=== PATIENT | female | born 1955 | race Caucasian/White ===

== ENCOUNTER 2019-12-18 20:17 | Emergency (ER) | payer OTHER ==
[2019-12-18] MEDS ORDERED: PROPARACAINE 0.5% OPHTH DROPS 15 ML BTL LEFT EYE STA (20:42)
[2019-12-18 21:30] VITALS: BP 117/76; PULSE 64; RESP 16; TEMP 98.2
--- NOTE | 2019-12-18 21:47 | ED ---
ENT HPI - General Chief complaint: ENT Stated complaint: left eye pain Time Seen by Provider: 12/18/19 20:30 Source: patient Mode of arrival: ambulatory Limitations: no limitations - History of Present Illness Initial comments: Patient is a 64-year-old female with no past history, on no medications presents emergency room with reported visual disturbance. She states that 2 days ago she was having a bowel movement where she was straining. Reports that she began having a floater in her left I which would be intermittent throughout the day. Tonight the patient reports that she had sudden onset of what she describes as a "lightning bolt" in her left eye around 7:30 pm. Visual disturbance is precipitated when the patient looks to the left when she is sitting upright. Denies having these symptoms when the patient lays down. Visual disturbance is not constant. She admits to been sensation that she is straining the eye however denies blurred vision or double vision. She denies ocular pain. No foreign body sensation. Patient does wear bifocals. No previous history of ocular surgery or disease. Patient is not a diabetic. No history of hypertension. She denies any associated headaches, temporal pain, fevers or chills. She denies any nausea or vomiting. No unilateral numbness or weakness. No other alleviating, precipitating or modifying factors - Related Data Allergies Allergy/AdvReac Type Severity Reaction Status Date / Time No Known Allergies Allergy Verified 12/18/19 20:30 Review of Systems ROS Statement: Those systems with pertinent positive or pertinent negative responses have been documented in the HPI. ROS Other: All systems not noted in ROS Statement are negative. Past Medical History Past Medical History: No Reported History History of Any Multi-Drug Resistant Organisms: None Reported Additional Past Surgical History / Comment(s): knee surgery Past Psychological History: No Psychological Hx Reported Smoking Status: Never smoker Past Alcohol Use History: Rare Past Drug Use History: None Reported General Exam Limitations: no limitations General appearance: alert, in no apparent distress Eye exam: Present: normal appearance, PERRL, EOMI. Absent: scleral icterus, conjunctival injection, periorbital swelling ENT exam: Present: normal exam, mucous membranes moist Neck exam: Present: normal inspection. Absent: tenderness, meningismus, lymphadenopathy Course Vital Signs 12/18/19 12/18/19 20:27 21:26 Temperature 98.1 F 98.2 F Pulse Rate 72 64 Respiratory 20 16 Rate Blood Pressure 155/93 117/76 O2 Sat by Pulse 98 99 Oximetry Medical Decision Making - Medical Decision Making Upon arrival the patient was placed into room 11. A thorough history and physical exam was performed. Visual acuity is obtained. Patient does have 20/50 vision in the left eye, 20/40 vision in the right eye and 20/40 vision in both eyes. Patient does have a reactive pupil. No signs of ocular entrapment. Patient's intraocular pressures measured and noted to be 18, 18 and 20. Limited funduscopic exam is performed and appears negative. I did perform a bedside ocular ultrasound which does not demonstrate any signs of retinal attachment. I discussed the results with the patient. I discussed the results with Dr. Boone at 2114. He does recommend follow-up on Friday morning in office for evaluation. Return to the emergency department should she have any worsening visual deficit. I did discuss this with the patient and her daughter at bedside. Daughter is upset and unhappy that the patient will not be dilated in the emergency department at this time by an antique furniture repairer. Because of the daughter's concerns I did call Dr. Boone back at 2129. He does discuss the patient's care with his father who is offering to open up the office tomorrow morning at 10 AM for evaluation. He states that the patient does not have signs consistent with a retinal detachment however this may involve a retinal tear versus vitreous hemorrhage. I discussed this care with the patient and her family. Patient does agree with the treatment plan. She is instructed to return to the emergency room and should she have a "snowglobe" visual disturbance the left eye or experience persistent visual disturbance even when looking straight. The patient understood this. The patient's information was given to Dr. Boone. The patient was given directions to the office and was told that she is expected to be there at 10 AM tomorrow. She was discharged with stable condition Disposition Clinical Impression: Vitreous floaters of left eye Disposition: HOME SELF-CARE Condition: Stable Instructions (If sedation given, give patient instructions): Visual Floaters (ED) Additional Instructions: You have an appointment scheduled Dr. Boone at 10 AM tomorrow. Please arrive at his office at this time. Return to the emergency room and should you have persistent for vision or "snowglobe" vision in the left eye. Is patient prescribed a controlled substance at d/c from ED?: No Referrals: Ben Marroquin MD [Primary Care Provider] - 1-2 days Dandre Boone MD [STAFF PHYSICIAN] - 1-2 days Chano Boone MD [REFERRING] - 1-2 days Time of Disposition: 21:46
== END 2019-12-18 21:55 | disposition home or self-care (01) ==
LOC: EC 20:17
DX: H43.392 Other vitreous opacities, left eye (principal)
CPT/HCPCS: 99283

== ENCOUNTER 2020-04-26 09:38 | Emergency (ER) | payer OTHER ==
[2020-04-26] MEDS ORDERED: MECLIZINE 12.5 MG TAB PO STA (10:06)
[2020-04-26] MEDS ORDERED: diphenhydrAMINE 50 MG/ML 1 ML VIAL IVP STA (10:06)
[2020-04-26] MEDS ORDERED: ONDANSETRON 4 MG/2 ML VIAL IVP STA (10:06)
[2020-04-26] MEDS ORDERED: SODIUM CHLORIDE 0.9% 500 ML 500 ML IV ONE (10:08)
[2020-04-26 10:35] LABS: Basophils % (A) 1 %; Eosinophils # (A) 0.1 k/uL (0-0.7); Eosinophils % (A) 3 %; HCT 42.7 % (34.0-46.0); HGB 14.4 gm/dL (11.4-16.0); Lymphocytes # (A) 1.6 k/uL (1.0-4.8); Lymphocytes % (A) 32 %; MCH 28.7 pg (25.0-35.0); MCHC 33.8 g/dL (31.0-37.0); MCV 84.7 fL (80.0-100.0); Mean Platelet Volume 6.9; Monocytes # (A) 0.3 k/uL (0-1.0); Monocytes % (A) 6 %; Neutrophils # (A) 2.9 k/uL (1.3-7.7); Neutrophils % (A) 58 %; Platelet Count 271 k/uL (150-450); RBC 5.04 m/uL (3.80-5.40); RDW 13.1 % (11.5-15.5)
[2020-04-26 10:45] LABS: INR 0.9 (<1.2); Partial Thromboplastin Time 24.1 sec (22.0-30.0); Prothrombin Time 9.8 sec (9.0-12.0)
[2020-04-26 10:47] LABS: Albumin 4.6 g/dL (3.5-5.0); Calcium 9.4 mg/dL (8.4-10.2); Potassium 3.8 mmol/L (3.5-5.1); Total Bilirubin 0.5 mg/dL (0.2-1.3); Total Protein 7.7 g/dL (6.3-8.2)
--- NOTE | 2020-04-26 11:11 | XR ---
EXAMINATION TYPE: XR chest 2V DATE OF EXAM: 04/26/2020 COMPARISON: NONE HISTORY: Dizziness TECHNIQUE: Frontal and lateral views of the chest are obtained. FINDINGS: There is no focal air space opacity, pleural effusion, or pneumothorax seen. The cardiac silhouette size is within normal limits. The osseous structures are intact. IMPRESSION: No acute cardiopulmonary process.
--- NOTE | 2020-04-26 11:27 | CT ---
EXAMINATION TYPE: CT brain wo con DATE OF EXAM: 04/26/2020 COMPARISON: None HISTORY: headache, dizziness CT DLP: 1089 mGycm Automated exposure control for dose reduction was used. FINDINGS: Ventricular system is midline. Ventricular size is compatible with the patient's age. No midline shif t or mass effect. No acute hemorrhage. Changes of chronic right maxillary sinusitis. Calvarium intact . Cerebellar tonsils low-lying in position at the level of foramen magnum. IMPRESSION: NO ACUTE HEMORRHAGE OR MASS EFFECT. LOW-LYING CEREBELLAR TONSILS CORRELATE FOR CHIARI MALFORMATION.
--- NOTE | 2020-04-26 11:41 | CT ---
EXAMINATION TYPE: CT angio head neck DATE OF EXAM: 04/26/2020 HISTORY: headache, dizziness COMPARISON: None CT DLP: 272 mGycm. Automated Exposure Control for Dose Reduction was Utilized. TECHNIQUE: CTA scan of the neck is performed with IV Contrast, patient injected with 65 mL of Isovue 370, axial images are obtained, coronal and sagittal reformatted images are reviewed. Three-D recons tructed images are created on an independent workstation and reviewed. FINDINGS: Left vertebral artery dominant. Anterior middle cerebral arteries enhance normally. Basilar artery and posterior cerebral arteries enhance normally. No sizable aneurysm or vascular malformatio n. The carotid bifurcations appear to be widely patent bilaterally with no significant stenosis. There are bilateral subpleural nodules the largest in the right upper lobe measuring 6 mm. Hypertroph ic changes of the spine. Changes of chronic sinusitis noted. IMPRESSION: 1. No evidence of significant hemodynamic stenosis involving the carotid bifurcations. 2. No sizable aneurysm or vascular malformation. 3. Correlate for right maxillary sinusitis.
[2020-04-26 11:59] LABS: Appearance,Urine Clear (Clear); Bilirubin,Urine Negative (Negative); Blood,Urine Negative (Negative); Color,Urine Colorless; Glucose,Urine (UA) Negative (Negative); Ketones,Urine Negative (Negative); Leukocyte Esterase,Urine Negative (Negative); Nitrite,Urine Negative (Negative); Protein,Urine Negative (Negative); Specific Gravity,Urine 1.014 (1.001-1.035); Urobilinogen,Urine <2.0 mg/dL (<2.0)
--- NOTE | 2020-04-26 12:03 | ED ---
Dizziness HPI - General Chief Complaint: Dizziness Stated Complaint: Dizziness, Nausea Time Seen by Provider: 04/26/20 09:52 Source: patient Mode of arrival: ambulatory Limitations: no limitations - History of Present Illness Initial Comments: 64-year-old female with history of chronic tinnitus, vertigo presenting to the emergency room today for chief complaint of dizziness and nausea since this AM. Patient states that she got up to the restroomshe said she felt very dizzy and off-balance she states this occurred when she took a few steps. Patient states she struggled with vertigo in the past. She states she has constant ringing in her ears. She states is not new. Patient states it is just increased from baseline. She states that she also got a headache this morning she states headaches are not typically unusual for her. She states is about a 3 out of 10 and she denies this being the worse headache of her life sudden onset. Patient states is in the frontal aspect of her head. Patient denies any neck pain and stiffness fevers she denies any vomiting vision loss or diplopia she denies any new vision changes. Patient denies weakness, sensation deficits, pt denies feeling off balance. Patietn denies fall, trauma, anticoagulation, denies hx of aneursym. she states she has seen both ENT and neurology in the past. Pt denies hcest pain, dypsnea, leg swelling, staets this is not lightheaded sensation but rather sensation of room spinning.. Patient denies additional complaints. UPon arrival patient appeears well nontoxic in no acute distress. - Related Data Previous Rx's Medication Instructions Recorded Meclizine [Antivert] 25 mg PO BID 7 Days #14 tab 04/26/20 Allergies Allergy/AdvReac Type Severity Reaction Status Date / Time dipyridamole Allergy Dyspnea Verified 04/26/20 09:59 [From Persantine] Review of Systems ROS Statement: Those systems with pertinent positive or pertinent negative responses have been documented in the HPI. ROS Other: All systems not noted in ROS Statement are negative. Past Medical History Past Medical History: No Reported History History of Any Multi-Drug Resistant Organisms: None Reported Additional Past Surgical History / Comment(s): knee surgery Past Psychological History: No Psychological Hx Reported Smoking Status: Never smoker Past Alcohol Use History: Rare Past Drug Use History: None Reported General Exam - General Exam Comments Initial Comments: General: The patient is awake and alert, in no distress, and does not appear acutely ill. Eye: +3 mm pupils are equal, round and reactive to light, extra-ocular movements are intact. No nystagmus. There is normal conjunctiva bilaterally. No signs of icterus. Ears, nose, mouth and throat: There are moist mucous membranes and no oral lesions. HINTS (-) Neck: The neck is supple, there is no tenderness or JVD. Cardiovascular: There is a regular rate and rhythm. No murmur, rub or gallop is appreciated. Respiratory: Lungs are clear to auscultation, respirations are non-labored, b reath sounds are equal. No wheezes, stridor, rales, or rhonchi. Gastrointestinal: Soft, non-distended, non-tender abdomen without masses or organomegaly noted. There is no rebound or guarding present. Musculoskeletal: Normal ROM, no tenderness. Strength 5/5. Sensation intact. Pulses equal bilaterally 2+. Neurological: A&O x 3. CN II-XII intact, memory intact to immediately, intermediate and exterminator termite recall. Able to follow simple verbal. Able to name a common object (pen). High quality, labial (pa) and lingual (la) speech. Low quality posterior pharynx/larynx (ga) voice sounds. Able to express general knowledge (days in a week). No hemineglect or inattention noted. Finger agnosia (-) and spatially oriented (identified L index finger touched R shoulder with L index finger).Light touch sensation present over the face, chest, abdomen, back, UE bilaterally, and LE bilaterally. Able to localize point during point localization b/l and extinction. No visible bulk atrophy, hypertrophy, fasciculations, or myoclonus of the UE or LE b/l. Full PROM in UE and LE b/l. Bilateral muscle strength 5/5 for the following muscles: deltoid, biceps, triceps, brachioradialis, wrist extensors/flexor, hip flexor, hip abduct ors/adductors, hamstrings, quadriceps, feet dorsiflexors/plantar flexors. Finger to nose, finger to the examiners finger, and heel to sarmiento coordinated and accurate b/l. Coordinated and even demonstration of hand flip, finger to thumb, and toe tap b/l. Gait is coordinated and even in stride. (-) pronator drift. No nuchal rigidity. (-) Brudzinskis and Kernig signs. Skin: Skin is warm and dry and no rashes or lesions are noted. Psychiatric: Cooperative, appropriate mood & affect, normal judgment. Limitations: no limitations Course Vital Signs 04/26/20 04/26/20 04/26/20 09:44 11:00 13:16 Temperature 98.2 F 97.2 F L Pulse Rate 65 68 61 Respiratory 18 16 18 Rate Blood Pressure 119/75 138/79 105/62 O2 Sat by Pulse 100 100 100 Oximetry - Reevaluation(s) Reevaluation #1: After medications, dizziness when from "above a 10, to a 3/10" 04/26/20 Medical Decision Making - Medical Decision Making 64-year-old female history of vertigo and tinnitus joints emergency department today for chief complaint of increased dizziness. Patient states she also had a headache 3 on a 10 not worse headache onset nohistory.CT/CT angiography negative for acute process a possible low-lying cerebellar tonsils po consistent with possible chiari malformation. Patient has (-)HINTS. EAC/TM WNL. No central findings of vertigo on neurological exam. no focalized findings. CXR (-). EKG no acute findings. LUngs clear. Patient had significant improvement with symptomatic treatment. patient case discussed with Dr. Kennedy who is agreeable to discharge with ENT f/u as this is felt to peripheral vertigo at this time. return parameterand importance of follow-up were discussed the patient was discharged appearing well - Lab Data Result diagrams: 04/26/20 10:14 04/26/20 10:14 Lab Results 04/26/20 04/26/20 04/26/20 Range/Units 10:14 10:14 10:14 WBC 5.0 (3.8-10.6) k/uL RBC 5.04 (3.80-5.40) m/uL Hgb 14.4 (11.4-16.0) gm/dL Hct 42.7 (34.0-46.0) % MCV 84.7 (80.0-100.0) fL MCH 28.7 (25.0-35.0) pg MCHC 33.8 (31.0-37.0) g/dL RDW 13.1 (11.5-15.5) % Plt Count 271 (150-450) k/uL MPV 6.9 Neutrophils % 58 % Lymphocytes % 32 % Monocytes % 6 % Eosinophils % 3 % Basophils % 1 % Neutrophils # 2.9 (1.3-7.7) k/uL Lymphocytes # 1.6 (1.0-4.8) k/uL Monocytes # 0.3 (0-1.0) k/uL Eosinophils # 0.1 (0-0.7) k/uL Basophils # 0.0 (0-0.2) k/uL PT (9.0-12.0) sec INR (<1.2) APTT (22.0-30.0) sec Sodium 139 (137-145) mmol/L Potassium 3.8 (3.5-5.1) mmol/L Chloride 103 (98-107) mmol/L Carbon Dioxide 26 (22-30) mmol/L Anion Gap 10 mmol/L BUN 20 H (7-17) mg/dL Creatinine 0.96 (0.52-1.04) mg/dL Est GFR (CKD-EPI)AfAm 72 (>60 ml/min/1.73 sqM) Est GFR (CKD-EPI)NonAf 63 (>60 ml/min/1.73 sqM) Glucose 96 (74-99) mg/dL Plasma Lactic Acid Pablo 0.9 (0.7-2.0) mmol/L Calcium 9.4 (8.4-10.2) mg/dL Total Bilirubin 0.5 (0.2-1.3) mg/dL AST 51 H (14-36) U/L ALT 46 H (4-34) U/L Alkaline Phosphatase 79 (38-126) U/L Troponin I (0.000-0.034) ng/mL Total Protein 7.7 (6.3-8.2) g/dL Albumin 4.6 (3.5-5.0) g/dL Urine Color Urine Appearance (Clear) Urine pH (5.0-8.0) Ur Specific [place] (1.001-1.035) Urine Protein (Negative) Urine Glucose (UA) (Negative) Urine Ketones (Negative) Urine Blood (Negative) Urine Nitrite (Negative) Urine Bilirubin (Negative) Urine Urobilinogen (<2.0) mg/dL Ur Leukocyte Esterase (Negative) 04/26/20 04/26/20 04/26/20 Range/Units 10:14 10:14 11:35 WBC (3.8-10.6) k/uL RBC (3.80-5.40) m/uL Hgb (11.4-16.0) gm/dL Hct (34.0-46.0) % MCV (80.0-100.0) fL MCH (25.0-35.0) pg MCHC (31.0-37.0) g/dL RDW (11.5-15.5) % Plt Count (150-450) k/uL MPV Neutrophils % % Lymphocytes % % Monocytes % % Eosinophils % % Basophils % % Neutrophils # (1.3-7.7) k/uL Lymphocytes # (1.0-4.8) k/uL Monocytes # (0-1.0) k/uL Eosinophils # (0-0.7) k/uL Basophils # (0-0.2) k/uL PT 9.8 (9.0-12.0) sec INR 0.9 (<1.2) APTT 24.1 (22.0-30.0) sec Sodium (137-145) mmol/L Potassium (3.5-5.1) mmol/L Chloride (98-107) mmol/L Carbon Dioxide (22-30) mmol/L Anion Gap mmol/L BUN (7-17) mg/dL Creatinine (0.52-1.04) mg/dL Est GFR (CKD-EPI)AfAm (>60 ml/min/1.73 sqM) Est GFR (CKD-EPI)NonAf (>60 ml/min/1.73 sqM) Glucose (74-99) mg/dL Plasma Lactic Acid Pablo (0.7-2.0) mmol/L Calcium (8.4-10.2) mg/dL Total Bilirubin (0.2-1.3) mg/dL AST (14-36) U/L ALT (4-34) U/L Alkaline Phosphatase (38-126) U/L Troponin I <0.012 (0.000-0.034) ng/mL Total Protein (6.3-8.2) g/dL Albumin (3.5-5.0) g/dL Urine Color Colorless Urine Appearance Clear (Clear) Urine pH 7.0 (5.0-8.0) Ur Specific [place] 1.014 (1.001-1.035) Urine Protein Negative (Negative) Urine Glucose (UA) Negative (Negative) Urine Ketones Negative (Negative) Urine Blood Negative (Negative) Urine Nitrite Negative (Negative) Urine Bilirubin Negative (Negative) Urine Urobilinogen <2.0 (<2.0) mg/dL Ur Leukocyte Esterase Negative (Negative) Disposition Clinical Impression: Dizziness, Nausea, Headache, History of tinnitus Disposition: HOME SELF-CARE Condition: Good Instructions (If sedation given, give patient instructions): Dizziness (ED) Additional Instructions: Please use medication as discussed. Please follow-up with family doctor in the next 2 days, recommend ENT follow-up in 1-2 days, as well as neurology follow-up for chiari malformation. Please return to emergency room if the symptoms increase or worsen or for any other concerns. Prescriptions: Meclizine [Antivert] 25 mg PO BID 7 Days #14 tab Is patient prescribed a controlled substance at d/c from ED?: No Referrals: Ben Marroquin MD [Primary Care Provider] - 1-2 days Lamine Mendoza MD [REFERRING] - 1-2 days Jace Morrison MD [STAFF PHYSICIAN] - 1-2 days Time of Disposition: 12:42
[2020-04-26 13:17] VITALS: BP 105/62; PULSE 61; RESP 18; TEMP 97.2
== END 2020-04-26 13:16 | disposition home or self-care (01) ==
LOC: EC 09:38
DX: R42 Dizziness and giddiness (principal); R51.9 Headache, unspecified; R11.0 Nausea; Z88.8 Allergy status to other drugs, medicaments and biological substances
CPT/HCPCS: 36415; 93005; 80053; 83605; 84484; 85025; 85610; 85730; 81003; 71046; 70496; 70450; 70498; 99284; 96374; 96375; 96361 ×2; J1200; J2405; Q9967

== ENCOUNTER 2022-03-02 04:34 | Emergency (ER) | payer MEDICARE, OTHER ==
[2022-03-02] MEDS ORDERED: SODIUM CHLORIDE 0.9% 1,000 ML IV STA (06:55)
[2022-03-02] MEDS ORDERED: KETOROLAC 15 MG/ML 1 ML VIAL IVP STA (06:55)
[2022-03-02] MEDS ORDERED: ONDANSETRON 4 MG/2 ML VIAL IVP STA (06:55)
[2022-03-02] MEDS ORDERED: PANTOPRAZOLE 40 MG/10 ML VIAL IVP STA (06:55)
--- NOTE | 2022-03-02 07:02 | ED ---
Abdominal Pain HPI - General Chief Complaint: Abdominal Pain Stated Complaint: vomiting,galbladder Time Seen by Provider: 03/02/22 06:36 Source: patient, family, RN notes reviewed Mode of arrival: ambulatory Limitations: no limitations - History of Present Illness Initial Comments: This is a 66-year-old female who presents to the emergency department for abdominal pain, nausea, and vomiting. States that she's had abdominal pain over the last 2-3 days and last night she started to develop nausea and vomiting. She feels like she has pain in the epigastric and lower abdominal area. She has had problems with her gallbladder in the past and this feels somewhat similar, however she's never seen a general surgeon regarding this issue. She feels like the problems with her gallbladder have continued to get worse and she is having difficulty figuring out what she can and cannot eat. She has only thrown up twice, but states that she threw up a substantial amount each time. Also reports diarrhea starting last night. Denies any fevers, chills, sore throat, cough, dyspnea, chest pain, palpitations, back pain, or headaches. MD Complaint: abdominal pain Onset/Timin -: days(s) Location: periumbilical, RUQ, epigastric Associated Symptoms: nausea, vomiting, diarrhea - Related Data Previous Rx's Medication Instructions Recorded Meclizine [Antivert] 25 mg PO BID 7 Days #14 tab 04/26/20 Ketorolac [Toradol] 10 mg PO Q6HR PRN #12 tab 03/02/22 Ondansetron Odt [Zofran Odt] 4 mg PO Q8HR PRN #15 tab 03/02/22 Allergies Allergy/AdvReac Type Severity Reaction Status Date / Time dipyridamole Allergy Dyspnea Verified 03/02/22 04:50 [From Persantine] Review of Systems ROS Statement: Those systems with pertinent positive or pertinent negative responses have been documented in the HPI. ROS Other: All systems not noted in ROS Statement are negative. Past Medical History Past Medical History: No Reported History History of Any Multi-Drug Resistant Organisms: None Reported Additional Past Surgical History / Comment(s): knee surgery Past Psychological History: No Psychological Hx Reported Smoking Status: Never smoker Past Alcohol Use History: Rare Past Drug Use History: None Reported General Exam Limitations: no limitations General appearance: alert, in no apparent distress Head exam: Present: atraumatic, normocephalic, normal inspection Respiratory exam: Present: normal lung sounds bilaterally. Absent: respiratory distress, wheezes, rales, rhonchi, stridor Cardiovascular Exam: Present: regular rate, normal rhythm, normal heart sounds. Absent: systolic murmur, diastolic murmur, rubs, gallop, clicks GI/Abdominal exam: Present: soft, tenderness (Epigastric), hyperactive bowel sounds. Absent: distended Neurological exam: Present: alert, oriented X3, CN II-XII intact Psychiatric exam: Present: normal affect, normal mood Skin exam: Present: warm, dry, intact, normal color. Absent: rash Course Vital Signs 03/02/22 03/02/22 03/02/22 04:47 08:28 10:07 Temperature 98.7 F 98.2 F 98.2 F Pulse Rate 87 661 H 65 Respiratory 18 16 19 Rate Blood Pressure 109/74 106/60 103/64 O2 Sat by Pulse 96 99 96 Oximetry Medical Decision Making - Medical Decision Making This is a 66-year-old female who presents to the emergency department for nausea, vomiting, and abdominal pain. Was pt. sent in by a medical professional or institution? @ -No Did you speak to anyone other than the patient for history? @ -Her Did you review nursing and triage notes? @ -Agree, accurate with regards to the patient's symptoms. Were old charts reviewed? @ -No Differential Diagnosis? @ -Differential Abdominal Pain Women: Appendicitis, Cholecystitis, diverticulosis, ischemic bowel, pancreatitis, hepatitis, UTI, gastroenteritis, AAA, incarcerated hernia, bowel obstruction, constipation, inflammatory bowel, hepatitis, peptic ulcer disease, splenic infarction, perforated viscus, vulvitis, ovarian torsion, PID, kidney stone, placenta abruption, this is not meant to be an all-inclusive list CT interpreted by me (1pt min.)? @ -My interpretation of the computed tomography scan of the abdomen and pelvis reveals no evidence of free air or bowel wall thickening. U/S interpreted by me (1pt. min.)? @ -Gallbladder ultrasound identifies no cholelithiasis. EKG interpreted by me (1 pt. min)? @ -Normal sinus rhythm. Ventricular rate 62 bpm, IA interval 156 ms, QRS duration 102 ms, QTC 446 ms. What testing was considered but not performed? (CT, X-rays, U/S, labs)? Why? @ -None What meds were considered but not given? Why? @ -None Did you discuss the management of the patient with other professionals? @ -No Did you reconcile home meds? @ -No Was smoking cessation discussed for >3mins.? @ -No Was critical care preformed (if so, how long)? @ -No Were there social determinants of health that impacted care today? How? (Homelessness, low income, unemployed, alcoholism, drug addiction, transportation, low edu. Level, literacy, decrease access to med. care, group home, rehab)? @ -No Was there de-escalation of care discussed even if they declined? (Discuss DNR or withdrawal of care, Hospice)? @ -No What co-morbidities impacted this encounter? (DM, HTN, Smoking, COPD, CAD, Cancer, CVA, Hep., AIDS, mental health diagnosis, sleep apnea, morbid obesity)? @ -None Was patient admitted / discharged? @ -Initially, lab work and an ultrasound of the gallbladder were obtained. Lab work was nonactionable. My interpretation of the gallbladder ultrasound is listed above. Because there were no any answers provided on the ultrasound and she has associated lower abdominal pain, computed tomography scan of the abdomen and pelvis was subsequently obtained. My interpretation of this is listed above as well, and no significant findings were noted. She was given IV fluids, Zofran, protonix, and Toradol, which she states essentially resolved her symptoms. Advised that she may have a biliary dyskinesia, in which case, she needs to discuss the possibility of a HIDA scan with her primary care provider. Prescription for Zofran and Toradol provided with dosing instructions reviewed. Advised she avoid other [id number]-[id number] anti-inflammatories such as ibuprofen if she chooses to take the Toradol. Drug Therapy requiring intensive monitoring for toxicity (Heparin, Nitro, Insulin, Cardizem)? @ -None Were any procedures done? @ -None Diagnosis/symptom? @ -Epigastric pain Acute, or Chronic, or Acute on Chronic? @ -acute Uncomplicated (without systemic symptoms) or Complicated (systemic symptoms)? @ -Complicated, there is associated nausea and vomiting. Side effects of treatment? @ -Adverse reactions to the Toradol. Exacerbation, Progression, or Severe Exacerbation] @ -Not applicable Poses a threat to life or bodily function? @ -May impact her function if the pain is severe enough. Diagnosis/symptom? @ -Nausea and vomiting Acute, or Chronic, or Acute on Chronic? @ -Acute Uncomplicated (without systemic symptoms) or Complicated (systemic symptoms)? @ -Uncomplicated Side effects of treatment? @ -Adverse reaction to the Zofran. Exacerbation, Progression, or Severe Exacerbation] @ -Not applicable Poses a threat to life or bodily function? @ -May impact function if the nausea and vomiting are severe enough. Return precautions reviewed in depth, the patient is instructed to return to the emergency department with any new, worsening, or concerning symptoms. Patient verbalized understanding. This case was discussed in detail with the attending ED physician. Presentation, findings, and treatment plan discussed in detail as well. - Lab Data Result diagrams: 03/02/22 07:54 03/02/22 07:54 Lab Results 03/02/22 03/02/22 03/02/22 Range/Units 07:54 07:54 07:54 WBC 7.1 (3.8-10.6) k/uL RBC 4.50 (3.80-5.40) m/uL Hgb 13.3 (11.4-16.0) gm/dL Hct 38.6 (34.0-46.0) % MCV 85.6 (80.0-100.0) fL MCH 29.5 (25.0-35.0) pg MCHC 34.5 (31.0-37.0) g/dL RDW 13.0 (11.5-15.5) % Plt Count 237 (150-450) k/uL MPV 7.2 Neutrophils % 86 % Lymphocytes % 9 % Monocytes % 2 % Eosinophils % 1 % Basophils % 0 % Neutrophils # 6.2 (1.3-7.7) k/uL Lymphocytes # 0.7 L (1.0-4.8) k/uL Monocytes # 0.2 (0-1.0) k/uL Eosinophils # 0.1 (0-0.7) k/uL Basophils # 0.0 (0-0.2) k/uL Sodium 137 (137-145) mmol/L Potassium 4.0 (3.5-5.1) mmol/L Chloride 107 (98-107) mmol/L Carbon Dioxide 23 (22-30) mmol/L Anion Gap 7 mmol/L BUN 18 H (7-17) mg/dL Creatinine 0.70 (0.52-1.04) mg/dL Est GFR (CKD-EPI)AfAm >90 (>60 ml/min/1.73 sqM) Est GFR (CKD-EPI)NonAf >90 (>60 ml/min/1.73 sqM) Glucose 99 (74-99) mg/dL Plasma Lactic Acid Pablo (0.7-2.0) mmol/L Calcium 8.4 (8.4-10.2) mg/dL Total Bilirubin 0.6 (0.2-1.3) mg/dL AST 58 H (14-36) U/L ALT 46 H (4-34) U/L Alkaline Phosphatase 96 (38-126) U/L Troponin I (0.000-0.034) ng/mL Total Protein 6.8 (6.3-8.2) g/dL Albumin 4.1 (3.5-5.0) g/dL Amylase 69 (30-110) U/L Lipase 112 (23-300) U/L Urine Color Light Yellow Urine Appearance Clear (Clear) Urine pH 5.5 (5.0-8.0) Ur Specific [place] 1.012 (1.001-1.035) Urine Protein Negative (Negative) Urine Glucose (UA) Negative (Negative) Urine Ketones Trace H (Negative) Urine Blood Negative (Negative) Urine Nitrite Negative (Negative) Urine Bilirubin Negative (Negative) Urine Urobilinogen <2.0 (<2.0) mg/dL Ur Leukocyte Esterase Negative (Negative) 03/02/22 03/02/22 Range/Units 07:54 07:54 WBC (3.8-10.6) k/uL RBC (3.80-5.40) m/uL Hgb (11.4-16.0) gm/dL Hct (34.0-46.0) % MCV (80.0-100.0) fL MCH (25.0-35.0) pg MCHC (31.0-37.0) g/dL RDW (11.5-15.5) % Plt Count (150-450) k/uL MPV Neutrophils % % Lymphocytes % % Monocytes % % Eosinophils % % Basophils % % Neutrophils # (1.3-7.7) k/uL Lymphocytes # (1.0-4.8) k/uL Monocytes # (0-1.0) k/uL Eosinophils # (0-0.7) k/uL Basophils # (0-0.2) k/uL Sodium (137-145) mmol/L Potassium (3.5-5.1) mmol/L Chloride (98-107) mmol/L Carbon Dioxide (22-30) mmol/L Anion Gap mmol/L BUN (7-17) mg/dL Creatinine (0.52-1.04) mg/dL Est GFR (CKD-EPI)AfAm (>60 ml/min/1.73 sqM) Est GFR (CKD-EPI)NonAf (>60 ml/min/1.73 sqM) Glucose (74-99) mg/dL Plasma Lactic Acid Pablo 0.7 (0.7-2.0) mmol/L Calcium (8.4-10.2) mg/dL Total Bilirubin (0.2-1.3) mg/dL AST (14-36) U/L ALT (4-34) U/L Alkaline Phosphatase (38-126) U/L Troponin I <0.012 (0.000-0.034) ng/mL Total Protein (6.3-8.2) g/dL Albumin (3.5-5.0) g/dL Amylase (30-110) U/L Lipase (23-300) U/L Urine Color Urine Appearance (Clear) Urine pH (5.0-8.0) Ur Specific [place] (1.001-1.035) Urine Protein (Negative) Urine Glucose (UA) (Negative) Urine Ketones (Negative) Urine Blood (Negative) Urine Nitrite (Negative) Urine Bilirubin (Negative) Urine Urobilinogen (<2.0) mg/dL Ur Leukocyte Esterase (Negative) - Radiology Data Radiology results: report reviewed, image reviewed Disposition Clinical Impression: Epigastric pain, Nausea & vomiting Disposition: HOME SELF-CARE Instructions (If sedation given, give patient instructions): Abdominal Pain (ED), Biliary Dyskinesia (DC) Additional Instructions: Return to the emergency department with any new, worsening, or concerning symptoms. Follow up with your primary care provider as scheduled next week to discuss a HIDA scan, which evaluates how your gallbladder is functioning. You can take the Zofran up to every 8 hours as needed for nausea and vomiting. The Toradol can be used up to every 6 hours, however do not take ibuprofen or other inmm-wym-zvfabci anti-inflammatories with this. Make sure that you remain well- hydrated and slowly advance your diet as tolerated. Prescriptions: Ketorolac [Toradol] 10 mg PO Q6HR PRN #12 tab PRN Reason: Pain Ondansetron Odt [Zofran Odt] 4 mg PO Q8HR PRN #15 tab PRN Reason: Nausea And Vomiting Is patient prescribed a controlled substance at d/c from ED?: No Referrals: Marie Cuellar [Primary Care Provider] - 1-2 days
--- NOTE | 2022-03-02 08:02 | US ---
EXAMINATION TYPE: US gallbladder DATE OF EXAM: 03/02/2022 COMPARISON: NONE CLINICAL HISTORY: Epigastric and RUQ pain. TECHNIQUE: Multiple sonographic images of the right upper quadrant are obtained. FINDINGS: EXAM MEASUREMENTS: Liver Length: 11.7 cm Gallbladder Wall: 0.2 cm CBD: 0.3 cm Right Kidney: 9.3 x 3.9 x 4.3 cm HOSPICE OFFICE COORDINATOR NOTES: Extensive midline bowel gas. Pancreas: wnl Liver: wnl Gallbladder: fundal portions somewhat obscured by bowel gas, wnl as seen Evidence for sonographic Andrea's sign: No CBD: wnl Right Kidney: No hydronephrosis or masses seen IMPRESSION: No evidence of acute process.
[2022-03-02 08:04] LABS: Basophils % (A) 0 %; Eosinophils # (A) 0.1 k/uL (0-0.7); Eosinophils % (A) 1 %; HCT 38.6 % (34.0-46.0); HGB 13.3 gm/dL (11.4-16.0); Lymphocytes # (A) 0.7 k/uL (1.0-4.8); Lymphocytes % (A) 9 %; MCH 29.5 pg (25.0-35.0); MCHC 34.5 g/dL (31.0-37.0); MCV 85.6 fL (80.0-100.0); Mean Platelet Volume 7.2; Monocytes # (A) 0.2 k/uL (0-1.0); Monocytes % (A) 2 %; Neutrophils # (A) 6.2 k/uL (1.3-7.7); Neutrophils % (A) 86 %; Platelet Count 237 k/uL (150-450); WBC 7.1 k/uL (3.8-10.6)
[2022-03-02 08:22] LABS: ALT 46 U/L (4-34); AST 58 U/L (14-36); African American GFR (CKD) >90 (>60 ml/min/1.73 sqM); Albumin 4.1 g/dL (3.5-5.0); Alkaline Phosphatase 96 U/L (38-126); Amylase 69 U/L (30-110); Anion Gap 7 mmol/L; Blood Urea Nitrogen 18 mg/dL (7-17); Calcium 8.4 mg/dL (8.4-10.2); Carbon Dioxide 23 mmol/L (22-30); Chloride 107 mmol/L (98-107); Glucose 99 mg/dL (74-99); Lipase 112 U/L (23-300); Non-African American GFR(CKD) >90 (>60 ml/min/1.73 sqM); Sodium 137 mmol/L (137-145); Total Bilirubin 0.6 mg/dL (0.2-1.3); Total Protein 6.8 g/dL (6.3-8.2)
[2022-03-02 08:28] VITALS: TEMP 98.2
[2022-03-02 09:01] LABS: Appearance,Urine Clear (Clear); Bilirubin,Urine Negative (Negative); Blood,Urine Negative (Negative); Color,Urine Light Yellow; Glucose,Urine (UA) Negative (Negative); Ketones,Urine Trace (Negative); Leukocyte Esterase,Urine Negative (Negative); Nitrite,Urine Negative (Negative); PH, Urine 5.5 (5.0-8.0); Protein,Urine Negative (Negative); Specific Gravity,Urine 1.012 (1.001-1.035); Urobilinogen,Urine <2.0 mg/dL (<2.0)
--- NOTE | 2022-03-02 09:30 | CT ---
EXAMINATION TYPE: CT abdomen pelvis w con CT DLP: 571.5 mGycm, Automated exposure control for dose reduction was used. DATE OF EXAM: 03/02/2022 9:16 AM COMPARISON: None CLINICAL INDICATION:Female, 66 years old with history of Lower abdominal pain; Nausea, vomiting, diar estefani, stomach pains, entire abdominal pain TECHNIQUE: Axial CT of the abdomen and pelvis. Sagittal and coronal reformats were created on a [employer] workstation. Contrast used:100 mL of Isovue 300 with IV Contrast, Oral contrast used: without Oral Contrast FINDINGS: LOWER CHEST: Unremarkable ABDOMEN LIVER: Unremarkable GALLBLADDER AND BILE DUCTS: Unremarkable. PANCREAS: Unremarkable. SPLEEN: Visualized portions are unremarkable. ADRENAL GLANDS: Unremarkable. KIDNEYS AND URETERS: No evidence of hydronephrosis or renal calculus. The ureters are unremarkable. PELVIS BLADDER: Unremarkable REPRODUCTIVE: Unremarkable. ABDOMEN & PELVIS STOMACH AND BOWEL: Appendix is normal. Fluid-filled small bowel. Mild hyperemia of the gastric mucosa . No bowel wall thickening or obstruction. PERITONEUM: No evidence of pneumoperitoneum or free fluid. VASCULATURE: No evidence of aortic aneurysm. MUSCULOSKELETAL: No acute osseous abnormalities LYMPH NODES: No gross evidence for lymphadenopathy. SOFT TISSUE/ABDOMINAL WALL: Unremarkable IMPRESSION: 1. No definitive acute abdominal process. Mild hyperemia of the gastric mucosa could represent gastr itis.
[2022-03-02] MEDS ORDERED: ONDANSETRON 4 MG ODT STARTER PACK 2 TAB BTL PO STA (09:52)
[2022-03-02 10:07] VITALS: BP 103/64; PULSE 65; RESP 19
== END 2022-03-02 10:12 | disposition home or self-care (01) ==
LOC: EC 04:34
DX: R10.13 Epigastric pain (principal); R11.2 Nausea with vomiting, unspecified
CPT/HCPCS: 36415; 74177; 76705; 80053; 81003; 82150; 83605; 83690; 84484; 85025; 93005; 96361; 96374; 96375; 99284

== ENCOUNTER 2024-02-12 13:14 | Day surgery (SDC) | payer BC, MEDICARE ==
[2024-02-12 13:52] VITALS: RESP 16; TEMP 98.4
[2024-02-12] MEDS: LACTATED RINGERS 1,000 ML BAG IV STA (13:53)
[2024-02-12] MEDS: IV FLUID CONTINUATION 1,000 ML IV ONE (13:54)
[2024-02-12] MEDS: LIDOCAINE 1% (10MG/ML) FOR IV START INTRADERMA STA (13:54)
[2024-02-12] MEDS ORDERED: PROPOFOL 10 MG/ML 20 ML VIAL IV ONE (15:11)
[2024-02-12] MEDS ORDERED: ONDANSETRON 4 MG/2 ML VIAL ONE (15:11)
[2024-02-12] MEDS ORDERED: LIDOCAINE 2% (PF) 20 MG/ML 5 ML VIAL ONE (15:11)
--- NOTE | 2024-02-12 15:35 | P.PCN ---
Date of Procedure: 02/12/24 Procedure(s) Performed: Preoperative Dx: Epigastric pain, GERD Postoperative Dx: Mild gastritis, small hiatal hernia Procedure: EGD with Bx Anesthesia: Sedation Endoscopist: Dr. Gresham Specimens: Antrum Endoscopic Procedure: The patient was on the endoscopy table in the left decubitus position. The Olympus gastroscope was inserted into the oropharynx and passed under direct visualization to the region of the third portion of the duodenum. From that point the scope was slowly withdrawn inspecting all surfaces carefully. There were no neoplastic inflammatory or polypoid lesions throughout the duodenum. The pylorus was widely patent. The stomach was carefully inspected. There was mild gastritis present. A biopsy of the antrum took place to rule out H. pylori. Retroflexion revealed a small sliding hiatal hernia. The GE junction was present only about 0.5 to 1 cm above the diaphragm. The esophagus was then carefully examined. There were no neoplastic inflammatory or polypoid lesions throughout the visualized esophagus. The patient was then taken to the recovery room in stable condition per anesthesia guidelines. Recommendations: Await biopsy results. Will order abdominal ultrasound to evaluate for biliary disease as a source of the patient's epigastric pains.
[2024-02-12 16:13] VITALS: BP 122/60; PULSE 67
== END 2024-02-12 16:54 | disposition home or self-care (01) ==
LOC: ORWHC2ENDO 13:14
PROVIDERS: ATTEND Surgery
DX: K21.9 Gastro-esophageal reflux disease without esophagitis (principal); K29.50 Unspecified chronic gastritis without bleeding; K44.9 Diaphragmatic hernia without obstruction or gangrene; Z98.890 Other specified postprocedural states; Z91.09 Other allergy status, other than to drugs and biological substances
CPT/HCPCS: 88305; 88342; 43239; J2405; J2704; J2003

== ENCOUNTER → 2024-03-12 | Outpatient (CLI) | payer BC, MEDICARE ==
--- NOTE | 2024-03-12 13:06 | US ---
EXAMINATION TYPE: US venous doppler duplex LE RT DATE OF EXAM: 03/12/2024 12:58 PM COMPARISON: NONE CLINICAL INDICATION: Female, 68 years old with history of M79.661 PAIN IN RLE R22.41 SWELLING, MASS A ND LUMP; right foot surgery x 1 month ago. No redness or Swelling., Pain TECHNIQUE: The lower extremity deep venous system is examined utilizing real time linear array sonog latia with graded compression, color doppler sonography, and spectral doppler. SIDE PERFORMED: Right FINDINGS: VESSELS IMAGED: Common Femoral Vein Deep Femoral Vein Greater Saphenous Vein * Femoral Vein Popliteal Vein Small Saphenous Vein * Proximal Calf Veins Posterior tibial and peroneal veins (* superficial vessels) Right Leg: Negative for DVT, Color Doppler imaging shows patency of the vessels. Spectral waveforms are within normal limits. IMPRESSION: No evidence for DVT within the right lower extremity. [facility], Workstation: [id number], 03/12/2024 1:04 PM
== END | disposition home or self-care (01) ==
LOC: RADUSWWP 12:30
PROVIDERS: ATTEND Podiatrist Foot & Ankle Surgery
DX: M79.661 Pain in right lower leg (principal); R22.41 Localized swelling, mass and lump, right lower limb